=== PATIENT | male | born 1965 | race Asian ===

== ENCOUNTER 2019-07-05 17:40 | Emergency (ER) | payer OTHER ==
[~2019-07-05] VITALS: Ht 172.7 cm; Wt 77.1 kg
[2019-07-05] MEDS ORDERED: ATEN50 PO (17:46)
[2019-07-05] MEDS ORDERED: AMLO10 PO (17:46)
[2019-07-05] MEDS ORDERED: ZOCOR20 MG PO (17:46)
[2019-07-05] MEDS ORDERED: FINA5 PO (17:47)
[2019-07-05 18:04] LABS: BASOPHILS ABSOLUTE AUTO 0.05 K/mm3 (0.00-0.23); BASOPHILS PERCENT AUTO 1 % (0-2); EOSINOPHILS ABSOLUTE AUTO 0.17 K/mm3 (0.00-0.68); EOSINOPHILS PERCENT AUTO 3 % (0-6); Hematocrit 42.6 % (37.0-53.0); Hemoglobin 14.5 g/dL (13.5-17.5); IMMATURE GRAN ABSOLUTE AUTO 0.01 K/mm3 (0.00-0.10); IMMATURE GRAN PERCENT AUTO 0 % (0-1); LYMPHOCYTES ABSOLUTE AUTO 2.25 K/mm3 (0.84-5.20); LYMPHOCYTES PERCENT AUTO 33 % (21-46); MONOCYTES ABSOLUTE AUTO 0.43 K/mm3 (0.16-1.47); MONOCYTES PERCENT AUTO 6 % (4-13); Mean Corpuscular HGB 32.8 pg (26.0-34.0); Mean Corpuscular Volume 96 fL (80-100); Mean Platelet Volume 9.5 fL (9.1-12.4); NEUTROPHILS ABSOLUTE AUTO 3.87 K/mm3 (1.96-9.15); NEUTROPHILS PERCENT AUTO 57 % (41-73); Platelet Count 219 K/mm3 (150-400); RDW Coefficient Variation 12.8 % (11.7-14.2); RDW Standard Deviation 45.3 fL (35.1-46.3); Red Blood Cell Count 4.42 M/mm3 (4.30-5.90); White Blood Cell Count 6.78 K/mm3 (4.00-11.30)
[2019-07-05 18:25] LABS: Alanine Aminotransfer (ALT/SGP 45 U/L (12-78); Albumin, Blood 3.8 g/dL (3.4-5.0); Alk Phos 74 U/L (50-136); Anion Gap 1 mmol/L (6-16); Aspartate Aminotrans (AST/SGOT 28 U/L (12-37); Bilirubin, Total 0.4 mg/dL (0.1-1.0); Blood Urea Nitrogen 16 mg/dL (8-24); Bun/Creatinine Ratio 21.8 (12.0-20.0); CO2, Blood 29 mmol/L (21-32); Chloride, Blood 110 mmol/L (98-108); Creatinine, Blood 0.73 mg/dL (0.60-1.20); Globulin, Blood 3.7 g/dL (2.2-4.0); Glomerular Filtration Rate >60 (60-); Glucose, Blood 109 mg/dL (70-99); Magnesium, Blood 2.3 mg/dL (1.6-2.4); Potassium, Blood 3.8 mmol/L (3.5-5.5); Sodium, Blood 140 mmol/L (136-145); Total Protein, Blood 7.5 g/dL (6.4-8.2); Troponin I <0.015 ng/mL (0.000-0.040)
[2019-07-05] MEDS ORDERED: PEPCID40 MG PO (18:39)
== END 2019-07-05 19:00 | disposition home or self-care (01) ==
LOC: ER 17:40
PROVIDERS: Emergency Medicine
DX: R07.9 Chest pain, unspecified (principal); E78.5 Hyperlipidemia, unspecified; I10 Essential (primary) hypertension
CPT/HCPCS: 71045; 80053; 83735; 84484; 85025; 85379; 99285-25